=== PATIENT | male | born 1955 | race Caucasian/White ===

== ENCOUNTER → 2017-08-29 | Outpatient (CLI) | payer BC ==
[2017-08-29 14:33] LABS: HEMOGLOBIN A1C 6.9 % (4.5-5.6)
== END | disposition home or self-care (01) ==
LOC: C.LABMFLN 10:38
PROVIDERS: ATTEND Nurse Practitioner Family
DX: E11.39 Type 2 diabetes mellitus with other diabetic ophthalmic complication (principal)

== ENCOUNTER → 2017-12-09 | Outpatient (CLI) | payer BC ==
[2017-12-09 13:40] LABS: HEMOGLOBIN A1C 7.3 % (4.5-5.6)
[2017-12-09 14:04] LABS: ALBUMIN 3.8 gm/dl (3.4-5.0); ALKALINE PHOSPHATASE 69 U/L (45-117); ALT/SGPT 46 U/L (12-78); AST/SGOT 38 U/L (15-37); BLOOD UREA NITROGEN 17 mg/dl (7-18); CALCIUM 8.5 mg/dl (8.5-10.1); CARBON DIOXIDE 25 mmol/L (21-32); CHOLESTEROL 122 mg/dl (0-200); GLUCOSE 98 mg/dl (70-99); LDL CHOLESTEROL CALCULATED 61 mg/dl; POTASSIUM 4.2 mmol/L (3.5-5.1); SODIUM 135 mmol/L (136-145); TOTAL PROTEIN 7.4 gm/dl (6.4-8.2)
== END | disposition home or self-care (01) ==
LOC: C.LABMFLN 07:06
PROVIDERS: ATTEND Nurse Practitioner Family
DX: E11.39 Type 2 diabetes mellitus with other diabetic ophthalmic complication (principal); E78.5 Hyperlipidemia, unspecified